=== PATIENT | female | born 2005 | race African-American/Black ===

== ENCOUNTER 2023-12-24 16:08 | Emergency (ER) | payer BC, SELFPAY ==
[2023-12-24 17:30] LABS: Bilirubin Negative (Negative); Blood, Urine Negative (Negative); CAUTI Indications for Culture Alt mental st,lethar; Clarity Turbid (Clear); Glucose, Urine (Dipstick) Normal (Negative); Ketone, Urine Negative (Negative); Leukocyte 250 Leu/uL (Negative); Nitrite 2+ (Negative); Protein, Urine (Dipstick) 10 mg/dL (Neg-Trace); RBC/HPF 0-3 HPF (0-3); Specific Gravity, Urine 1.028 (1.002-1.036); Urobilinogen Normal mg/dL (Less than 2)
[2023-12-24] MEDS ORDERED: Azithromycin 250 MG TAB ONE (17:31)
[2023-12-24] MEDS ORDERED: cefTRIAXone (ROCEPHIN) 250 MG VIAL ONE (17:31)
[2023-12-24] MEDS ORDERED: Lidocaine 1% MPF 2 ML VIAL ONE (17:34)
[2023-12-24 17:42] LABS: Bacteria/HPF 4+ HPF (None Seen)
[2023-12-24 17:44] LABS: Urine Culture Reflex Yes Yes
[2023-12-24 17:57] LABS: Pregnancy Test - Urine (BHCG) Negative (Negative); Pregu Control Background? CLEAR/WHITE (CLR/WHITE); Pregu Control Bar Appear? YES (CONTROL BAR); Specific Gravity 1.028 (1.002-1.036)
[2023-12-25 19:02] LABS: Chlamydia by PCR, Vaginal Swab Not Detected (NotDetected); GC by PCR, Vaginal Swab DETECTED (NotDetected)
== END 2023-12-24 18:18 | disposition home or self-care (01) ==
LOC: ERS 16:08
DX: N39.0 Urinary tract infection, site not specified (principal); Z20.2 Contact with and (suspected) exposure to infections with a predominantly sexual mode of transmission
CPT/HCPCS: 81001; 81025; 87077; 87086; 87186; 87480; 87491; 87510; 87591; 87660; 96372; 99283; J0696